=== PATIENT | male | born 1990 | race Caucasian/White ===

== ENCOUNTER 2019-07-21 07:54 | Day surgery (SDC) | payer BC ==
[~2019-07-21] VITALS: Ht 170.2 cm; Wt 68.0 kg
[~2019-07-21 07:54] MED LIST: CEFAZOLIN 1 GM IVPB PREMIX 50 ML IV ONE
[2019-07-21] MEDS ORDERED: POLYMYXIN 500,000/BACIT.10,000 UNITS in NS IRR 1 L IR ONE (10:26)
[2019-07-21] MEDS ORDERED: ONDANSETRON HCL 4 MG/2 ML VIAL IVP ONE (11:00)
[2019-07-21] MEDS ORDERED: NEOSTIGMINE METHYLSULFATE 1 MG/ML, 10 ML VIAL IVP ONE (11:00)
[2019-07-21] MEDS ORDERED: MIDAZOLAM HCL 5 MG/5 ML VIAL IVP ONE (11:00)
[2019-07-21] MEDS ORDERED: LR 1,000 ML IV.SOLN IV ONE (11:00)
[2019-07-21] MEDS ORDERED: BUPIVACAINE /EPINEPHRINE/PF 0.25% 30 ML VIAL INJ ONE (11:00)
[2019-07-21] MEDS ORDERED: fentaNYL CITRATE/PF 100 MCG/2 ML AMP IVP ONE (11:00)
[2019-07-21] MEDS ORDERED: GLYCOPYRROLATE 0.2 MG/ML VIAL IJ ONE (11:00)
[2019-07-21] MEDS ORDERED: SEVOFLURANE 15 MIN GAS INH ONE (11:00)
[2019-07-21] MEDS ORDERED: ROCURONIUM BROMIDE 10 MG/ML (ZEMURON) IV ONE (11:00)
[2019-07-21] MEDS ORDERED: LR 1,000 ML IV SCH (11:59)
[2019-07-21] MEDS ORDERED: MEPERIDINE HCL/PF 25 MG/ML DISP.SYRIN IVP PRN (12:00)
[2019-07-21] MEDS ORDERED: MEPERIDINE HCL/PF 50 MG/ML AMP IVP PRN ×2 (12:00)
[2019-07-21] MEDS ORDERED: METOCLOPRAMIDE HCL 10 MG/2 ML VIAL IVP PRN (12:00)
[2019-07-21] MEDS ORDERED: D5/0.45 NS 1,000 ML IV SCH (12:16)
[2019-07-21] MEDS ORDERED: HYDROmorphone 1 MG INJ. 1 MG/ML AMPUL IVP PRN (12:30)
[2019-07-21] MEDS ORDERED: MEPERIDINE HCL/PF 50 MG/ML AMP ONE ×3 (12:48→13:31)
[2019-07-21] MEDS ORDERED: DIPHENHYDRAMINE INJ 50 MG/ML VIAL IVP ONE (13:15)
[2019-07-21] MEDS ORDERED: DIPHENHYDRAMINE INJ 50 MG/ML VIAL ONE (13:20)
[2019-07-21] MEDS ORDERED: HYDROmorphone 1 MG INJ. 1 MG/ML AMPUL ONE (14:56)
[2019-07-21 16:52] VITALS: BP_SYST 120
== END 2019-07-21 15:50 | disposition home or self-care (01) ==
LOC: SMU 07:54 → SDS 07:54
PROVIDERS: ATTEND Colon & Rectal Surgery
DX: K43.0 Incisional hernia with obstruction, without gangrene (principal); K66.0 Peritoneal adhesions (postprocedural) (postinfection); Z88.8 Allergy status to other drugs, medicaments and biological substances; F32.9 Major depressive disorder, single episode, unspecified; F17.210 Nicotine dependence, cigarettes, uncomplicated; Z83.3 Family history of diabetes mellitus; L30.9 Dermatitis, unspecified; Z79.899 Other long term (current) drug therapy
CPT/HCPCS: 49561; 49568; C1781; J0690; J1170; J1200; J2175; J2250; J2405; J2710; J3010; J3490 ×2; J7120

== ENCOUNTER 2021-01-10 10:58 | Day surgery (SDC) | payer BC, SELFPAY ==
[~2021-01-10] VITALS: Ht 172.7 cm; Wt 81.6 kg
[~2021-01-10 10:58] MED LIST changes: -CEFAZOLIN 1 GM IVPB PREMIX 50 ML IV ONE; +CEFAZOLIN SOD 1 GM in D5W 50 ML IV ONE
[2021-01-10] MEDS ORDERED: HYDROmorphone 1 MG INJ. 1 MG/ML AMPUL IVP PRN ×3 (15:00→18:00)
[2021-01-10] MEDS ORDERED: METOCLOPRAMIDE HCL 10 MG/2 ML VIAL IVP PRN (15:00)
[2021-01-10] MEDS ORDERED: ONDANSETRON HCL 4 MG/2 ML VIAL IVP PRN ×2 (15:00→18:00)
[2021-01-10] MEDS ORDERED: MIDAZOLAM HCL 2 MG/2 ML VIAL (VERSED) IVP PRN (15:00)
[2021-01-10] MEDS ORDERED: LR 1,000 ML IV SCH (15:00)
[2021-01-10] MEDS ORDERED: MEPERIDINE HCL/PF 25 MG/ML DISP.SYRIN ONE (15:34)
[2021-01-10] MEDS: MEPERIDINE HCL/PF 25 MG/ML DISP.SYRIN IVP PRN ×2 (15:39→15:43)
[2021-01-10] MEDS ORDERED: HYDROmorphone 1 MG INJ. 1 MG/ML AMPUL ONE (15:55)
[2021-01-10] MEDS: HYDROmorphone 1 MG INJ. 1 MG/ML AMPUL IVP PRN ×4 (15:57→23:31)
[2021-01-10 16:45] VITALS: BP_SYST 149
[2021-01-10 17:40] VITALS: BP_SYST 149
[2021-01-10] MEDS ORDERED: LORA10TA7 PO (17:59)
[2021-01-10] MEDS ORDERED: ACETAMINOPHEN 325 MG TABLET PO PRN (18:00)
[2021-01-10] MEDS: CEFAZOLIN 1 GM IVPB PREMIX 50 ML IV SCH (18:42)
[2021-01-10] MEDS: D5/0.45 NS 1,000 ML IV SCH (18:42)
[2021-01-10] MEDS: FAMOTIDINE PF 20 MG/2 ML VIAL IVP SCH (20:33)
[2021-01-11] MEDS: CEFAZOLIN 1 GM IVPB PREMIX 50 ML IV SCH (01:45)
[2021-01-11] MEDS: D5/0.45 NS 1,000 ML IV SCH ×3 (01:46→20:36)
[2021-01-11] MEDS: HYDROmorphone 1 MG INJ. 1 MG/ML AMPUL IVP PRN ×5 (04:21→22:28)
[2021-01-11 08:00] VITALS: BP_SYST 135
[2021-01-11] MEDS: ENOXAPARIN SODIUM 30 MG/0.3 ML SYRINGE SUBCUT SCH (08:56)
[2021-01-11] MEDS: FAMOTIDINE PF 20 MG/2 ML VIAL IVP SCH ×2 (08:56→20:31)
[2021-01-11 12:41] VITALS: BP_SYST 122
[2021-01-11 16:35] VITALS: BP_SYST 133
[2021-01-11 20:00] VITALS: BP_SYST 136
[2021-01-12] VITALS: BP_SYST 131
[2021-01-12] MEDS: HYDROmorphone 1 MG INJ. 1 MG/ML AMPUL IVP PRN ×2 (02:37→06:42)
[2021-01-12] MEDS: D5/0.45 NS 1,000 ML IV SCH (06:03)
[2021-01-12 09:01] VITALS: BP_SYST 146
[2021-01-12] MEDS: FAMOTIDINE PF 20 MG/2 ML VIAL IVP SCH (09:01)
[2021-01-12] MEDS: ENOXAPARIN SODIUM 30 MG/0.3 ML SYRINGE SUBCUT SCH (09:58)
[2021-01-12 12:21] VITALS: BP_SYST 129
[2021-01-12 14:35] VITALS: BP_SYST 130
== END 2021-01-12 14:00 | disposition home or self-care (01) ==
LOC: SMU 10:58 → SDS 10:58 → SMU 16:30 → SDS 01-12 14:00
PROVIDERS: ATTEND Colon & Rectal Surgery
DX: K43.0 Incisional hernia with obstruction, without gangrene (principal); Z88.5 Allergy status to narcotic agent; Z88.8 Allergy status to other drugs, medicaments and biological substances; Z79.899 Other long term (current) drug therapy; Z20.828 Contact with and (suspected) exposure to other viral communicable diseases
CPT/HCPCS: 49565; 49568; 64488; 87081; 88304; C1781; J0690 ×2; J1170 ×3; J1650 ×2; J2175; J3490 ×3; J7060; U0003